=== PATIENT | female | born 1965 | race Caucasian/White ===

== ENCOUNTER 2019-03-31 12:22 | Emergency (ER) | payer MEDICARE, MEDICAID ==
[~2019-03-31] VITALS: Ht 165.1 cm; Wt 74.4 kg
[2019-03-31 13:04] LABS: BACTERIA,URINE NEGATIVE /HPF; BILIRUBIN,URINE NEGATIVE (NEGATIVE); CLARITY,URINE CLEAR; COLOR,URINE YELLOW; GLUCOSE, URINE (UA) NEGATIVE (NEGATIVE); KETONES,URINE NEGATIVE (NEGATIVE); LEUKOCYTE ESTERASE ,URINE NEGATIVE (NEGATIVE); NITRITE,URINE NEGATIVE (NEGATIVE); PH,URINE 6 (5-9); PROTEIN,URINE NEGATIVE (NEGATIVE); RBC,URINE RARE /HPF; UROBILINOGEN,URINE NORMAL (NORMAL); WBC,URINE RARE /HPF
[2019-03-31] MEDS ORDERED: ONDANSETRON 4 MG (ZOFRAN) ORAL DISSOLVE TAB PO STA (13:12)
[2019-03-31] MEDS ORDERED: HYDROmorphone 2 MG/ML VIAL (DILAUDID) IV ONE (13:15)
--- NOTE | 2019-03-31 13:26 | ED Back Pain ---
General Chief Complaint: Back Problems Stated Complaint: RT SIDE HIP PAIN Nursing Triage Note: Arrival per POV, pt slid and fell in mud on sidewalk by her car and landed on her front. Pt then hit sidewalk turned to her R side and twisted L ankle. Pt reports pain in R elbow, low back, and L ankle. Pt in P.T. therapy for bulging disc back and also chronic pain post OP L ankle fx 2016. Nursing Sepsis Screen: No Definite Risk History of Present Illness Date Seen by Provider: March 31, 2019 Time Seen by Provider: 13:05 Timing/Duration: 1 Hour Severity: Moderate Method of Injury: Fall Modifying Factors: Improves With Movement Associated Symptoms: denies symptoms Other Comments This is a 53-year-old female who presents after a mechanical fall forwards with right elbow, right knee, left ankle, and left low back pain. No weakness or numbness or tingling. No antiplatelet agents or anticoagulant medications. She did not hit her head. No headache or neck pain. No chest pain or shortness of breath. Pain is constant, moderate, sore in character, worse with palpation or movement, nonradiating from the areas described above. Allergies and Home Medications Allergies Coded Allergies: adhesive tape (Unverified Adverse Reaction, Unknown, 03/31/19) dicyclomine (Unverified Adverse Reaction, Unknown, 03/31/19) hydrocodone (Unverified Adverse Reaction, Unknown, 03/31/19) ibuprofen (Unverified Adverse Reaction, Unknown, 03/31/19) latex (Unverified Adverse Reaction, Unknown, 03/31/19) menthol (Unverified Adverse Reaction, Unknown, 03/31/19) meperidine (Unverified Adverse Reaction, Unknown, 03/31/19) nortriptyline (Unverified Adverse Reaction, Unknown, 03/31/19) prednisone (Unverified Adverse Reaction, Unknown, 03/31/19) tramadol (Unverified Adverse Reaction, Unknown, 03/31/19) Patient Home Medication List Home Medication List Reviewed: Yes Review of Systems Constitutional: no symptoms reported EENTM: no symptoms reported Respiratory: no symptoms reported Cardiovascular: no symptoms reported Gastrointestinal: no symptoms reported Genitourinary: no symptoms reported Musculoskeletal: see HPI Skin: no symptoms reported Psychiatric/Neurological: No Symptoms Reported Past Kbbukim-Ejjdnv-Picyaq Hx Past Med/Social Hx: Reviewed Nursing Past Med/Soc Hx Patient Social History Alcohol Use: Denies Use Recreational Drug Use: No Smoking Status: Never a Smoker Recent Foreign Travel: No Contact w/Someone Who Travel: No Recent Infectious Disease Expo: No Recent Hopitalizations: No Physical Abuse: No Sexual Abuse: No Mistreated: No Fear: No Seasonal Allergies Seasonal Allergies: No Past Medical History Surgeries: Yes (bx, breast bx, carpal tunnel release, L wrist x 2, eye surgery) Breast, Orthopedic Respiratory: No Cardiac: Yes (undiagnosed cardiac murmur) Hypertension Neurological: Yes Headaches /Migraines Genitourinary: Yes UTI-Chronic Gastrointestinal: Yes (Diaphragmatic hernia) Gastroesophageal Reflux, Esophagitis, Irritable Bowel Musculoskeletal: Yes (bulging disc, chronic left ankle pain, cervical disc "pinched") Chronic Back Pain Endocrine: Yes Diabetes, Non-Insulin dep HEENT: Yes (eye surgery) Cancer: No Psychosocial: Yes Depression Integumentary: No Blood Disorders: No Physical Exam Vital Signs Vital Signs - First Documented 03/31/19 12:25 Temp 98.6 Pulse 83 Resp 22 B/P (MAP) 131/81 (98) Pulse Ox 96 O2 Delivery Room Air Capillary Refill : Less Than 3 Seconds Height, Weight, BMI Height: 5'5.00" Weight: 164lbs. oz. 74.542864uy; BMI Method:Stated General Appearance: No Apparent Distress HEENT: PERRL/EOMI (no palomino sign, no otorrhea, no tenderness of the scalp) Neck: Non Tender, Supple Cardiovascular: Regular Rate, Rhythm, Normal Peripheral Pulses Respiratory: Chest Non Tender (lateral compression of chest refers pain to left mid to lower back), Lungs Clear Gastrointestinal: Non Tender, Soft Back: Other (there is tenderness in the left lumbar musculature, slightly tender over the left lowermost posterior ribs) Extremity: Other (there is some generalized tenderness about the right knee with no ligamentous laxity no effusion. There is also tenderness to palpation over the medial and lateral left malleoli of the ankle. There is faint ecchymosis over the proximal ulna on the right, with mild tenderness to palpation in the soft tissues of the proximal forearm. Small amount of dirt on the hyperthenar eminence of the left hand without tenderness) Neurologic/Psychiatric: Alert, Oriented x3, No Motor/Sensory Deficits, insurance marketing specialist II- XII Norm as Tested; No Abnormal Cerebellar Tests Skin: Warm/Dry Progress/Results/Core Measures Results/Orders Lab Results Laboratory Tests Test 03/31/19 12:51 Range/Units Urine Color YELLOW Urine Clarity CLEAR Urine pH 6 5-9 Urine Specific [place] 1.010 L 1.016-1.022 Urine Protein NEGATIVE NEGATIVE Urine Glucose (UA) NEGATIVE NEGATIVE Urine Ketones NEGATIVE NEGATIVE Urine Nitrite NEGATIVE NEGATIVE Urine Bilirubin NEGATIVE NEGATIVE Urine Urobilinogen NORMAL NORMAL MG/DL Urine Leukocyte Esterase NEGATIVE NEGATIVE Urine RBC (Auto) NEGATIVE NEGATIVE Urine RBC RARE /HPF Urine WBC RARE /HPF Urine Squamous Epithelial Cells 2-5 /HPF Urine Crystals NONE /LPF Urine Bacteria NEGATIVE /HPF Urine Casts NONE /LPF Urine Mucus NEGATIVE /LPF Urine Culture Indicated NO My Orders Orders - SKYE HERNANDEZ DO Ua Culture If Indicated (03/31/19 12:52) Hydromorphone Injection (Dilaudid Inject (03/31/19 13:15) Ondansetron Oral Dissolve Tab (Zofran (03/31/19 13:12) Elbow 2 View Right (03/31/19 13:12) Ankle 2 View Left (03/31/19 13:12) Lumbar Spine 2 Or 3 View (03/31/19 13:12) Knee 2 View Right (03/31/19 13:12) Chest Pa/Lat (2 View) (03/31/19 13:26) Thoracic Spine 2 View Only (03/31/19 13:27) Medications Given in ED Current Medications Medications Dose Ordered Sig/Marlin Route Start Time Stop Time Status Last Admin Dose Admin Hydromorphone HCl 1 mg ONCE ONCE IV 03/31/19 13:15 03/31/19 13:16 DC 03/31/19 13:21 1 MG Vital Signs/I&O 03/31/19 03/31/19 12:25 13:21 Temp 98.6 98.6 Pulse 83 Resp 22 B/P (MAP) 131/81 (98) Pulse Ox 96 O2 Delivery Room Air Blood Pressure Mean: 98 Progress Progress Note #1: Progress Note Primary and secondary survey is only significant for tenderness over the right elbow, right knee, left ankle, and left mid to lower back. We will treat patient with intramuscular hydromorphone for analgesia and we will obtain radiographs of the above areas. She is nontoxic in appearance, neurovascularly intact. We will continue to monitor. Progress Note #2: Progress Note Pt feels well and ready to go home. Xrays neg. Ambulating steadily without assistance. F/u pcp. Departure Impression Primary Impression: Back strain Additional Impressions: Fall Elbow contusion Ankle sprain Knee contusion Disposition: HOME, SELF-CARE Condition: Stable Departure-Patient Inst. Referrals: MARITZA HUFF MD (PCP/Family) Primary Care Physician Patient Instructions: Lumbar Muscle Strain (DC), Ankle Sprain (DC) SKYE HERNANDEZ DO March 31, 2019 13:26
--- NOTE | 2019-03-31 14:58 | Diagnostic Imaging Report ---
INDICATION: Chest pain after fall. COMPARISON: None. DISCUSSION: Two views of the chest were obtained. Mild cardiomegaly. No focal consolidation, pleural fluid, or pneumothorax. No osseous abnormality. IMPRESSION: 1. Mild cardiomegaly. No acute abnormality otherwise. Dictated by: Dictated on workstation # [id number]
--- NOTE | 2019-03-31 14:59 | Diagnostic Imaging Report ---
INDICATION: Right elbow pain after fall. COMPARISON: None available. TECHNIQUE: AP and lateral views of the right elbow were obtained. FINDINGS: No elbow joint effusion. No discrete fracture. Joint spaces are preserved. No radiopaque foreign body. IMPRESSION: No acute osseous abnormality of the right elbow. Dictated by: Dictated on workstation # [id number]
--- NOTE | 2019-03-31 14:59 | Diagnostic Imaging Report ---
INDICATION: Right knee pain after fall. COMPARISON: None. DISCUSSION: Two views of the right knee were obtained. No acute fracture, dislocation, or other osseous abnormality identified. No significant degenerative disease. Alignment is anatomic. Soft tissues are unremarkable. No effusion. IMPRESSION: 1. Negative right knee. Dictated by: Dictated on workstation # [id number]
--- NOTE | 2019-03-31 15:00 | Diagnostic Imaging Report ---
INDICATION: Mid back pain after fall. COMPARISON: None. DISCUSSION: Three views of the thoracic spine were obtained. No fracture or subluxation. Intervertebral disc spaces are maintained. Alignment is anatomic. Soft tissues are unremarkable. IMPRESSION: 1. Negative thoracic spine. Dictated by: Dictated on workstation # [id number]
--- NOTE | 2019-03-31 15:01 | Diagnostic Imaging Report ---
INDICATION: Left ankle pain. COMPARISON: None available. TECHNIQUE: Two views of the left ankle were obtained. FINDINGS: No acute fracture or traumatic malalignment. There is a hyperdense prosthesis of the distal aspect of the calcaneus. No osteochondral lesion of talar dome. Partially imaged arthrodesis changes utilizing dorsal plate and screws in the midfoot. IMPRESSION: 1. No acute osseous abnormality in the left ankle. 2. Prosthesis of the distal calcaneus. Correlation with surgical history. Dictated by: Dictated on workstation # [id number]
--- NOTE | 2019-03-31 15:03 | Diagnostic Imaging Report ---
INDICATION: Back pain after fall. COMPARISON: None available. TECHNIQUE: 3 views of lumbar spine were obtained. FINDINGS: Normal lordosis lumbar spine. No compression or burst fracture within the lumbar vertebrae. No features of fracture the posterior elements. SI joints are normal alignment. Intervertebral disc space heights are preserved. IMPRESSION: No acute fracture in the lumbar spine. Dictated by: Dictated on workstation # [id number]
--- NOTE | 2019-03-31 15:15 | NUR ---
Notified that all films are read.
[2019-03-31 15:30] VITALS: BP 117/69
--- NOTE | 2019-03-31 15:30 | NUR ---
Pt discharged to home after review of home instructions verbalized. had to do extensive discharge instructions with patient for the many questions about her current underlying problems and associated discomfort now with return to work. Work note prepared to release to return to work on April 03 with no restrictions. Pt advised to keep all f/u appts existing. Pt will go to P.T. Tuesday but will advise of the ER visit. Pt then states, "Well are you going to dress me and put me in the WC as I can not do anything?" Staff note pt only fastened bra and staff had to do remaining assistance of dressing.
[2019-03-31] MEDS ORDERED: LUBI8CAP (16:57)
[2019-03-31] MEDS ORDERED: GABA-486 (16:57)
[2019-03-31] MEDS ORDERED: SITA100T12 (16:57)
[2019-03-31] MEDS ORDERED: ESCI5TAB12 (16:57)
[2019-03-31] MEDS ORDERED: OMEP20CA12 (16:57)
[2019-03-31] MEDS ORDERED: FEXO-46 (16:57)
[2019-03-31] MEDS ORDERED: LOSA50TA63 (16:57)
== END 2019-03-31 15:30 | disposition home or self-care (01) ==
LOC: EDUNIT# 12:22 → ER FS 12:24
DX: S39.012A Strain of muscle, fascia and tendon of lower back, initial encounter (principal); S93.401A Sprain of unspecified ligament of right ankle, initial encounter; S50.01XA Contusion of right elbow, initial encounter; S80.01XA Contusion of right knee, initial encounter; I10 Essential (primary) hypertension; G43.909 Migraine, unspecified, not intractable, without status migrainosus; K21.0 Gastro-esophageal reflux disease with esophagitis; K58.9 Irritable bowel syndrome, unspecified; E11.9 Type 2 diabetes mellitus without complications; F32.9 Major depressive disorder, single episode, unspecified; Z87.440 Personal history of urinary (tract) infections; Z98.890 Other specified postprocedural states; Z91.048 Other nonmedicinal substance allergy status; Z88.6 Allergy status to analgesic agent; Z91.040 Latex allergy status; Z88.8 Allergy status to other drugs, medicaments and biological substances; Z88.5 Allergy status to narcotic agent; W18.30XA Fall on same level, unspecified, initial encounter
CPT/HCPCS: 71046; 72070; 72100; 73070; 73560; 73600; 81000; 96372

== ENCOUNTER → 2019-04-18 | Outpatient (CLI) | payer MEDICARE, MEDICAID ==
[~2019-04-18] MED LIST: ESCI5TAB12; FEXO-46; GABA-486; LOSA50TA63; LUBI8CAP; OMEP20CA12; SITA100T12
[2019-04-18 10:21] LABS: CARBON DIOXIDE 26 MMOL/L (21-32); CHLORIDE 101 MMOL/L (98-107); SODIUM 141 MMOL/L (135-145)
[2019-04-18 10:22] LABS: ALANINE AMINOTRANSFERASE 23 U/L (0-55); ALBUMIN 4.4 GM/DL (3.2-4.5); ALKALINE PHOSPHATASE 73 U/L (40-136); BILIRUBIN,TOTAL 0.4 MG/DL (0.1-1.0); BUN/CREATININE RATIO 21; CALCIUM 9.4 MG/DL (8.5-10.1); CREATININE SERUM 0.77 MG/DL (0.60-1.30); GFR ESTIMATED > 60; GLUCOSE 154 MG/DL (70-105); TOTAL PROTEIN 7.6 GM/DL (6.4-8.2)
[2019-04-18 11:59] LABS: CHOLESTEROL 202 MG/DL (< 200); HDL CHOLESTEROL 49 MG/DL (40-60); TRIGLYCERIDES 111 MG/DL (<150); VLDL CHOLESTEROL 22 MG/DL (5-40)
== END ==
LOC: LAB FS 07:26
PROVIDERS: ATTEND Family Medicine
DX: E11.9 Type 2 diabetes mellitus without complications (principal); I10 Essential (primary) hypertension
CPT/HCPCS: 36415; 80053; 80061; 82043; 83036

== ENCOUNTER 2019-12-04 13:02 | Emergency (ER) | payer OTHER, MEDICAID ==
[~2019-12-04] VITALS: Ht 165 cm; Wt 118.0 kg
[~2019-12-04 13:02] MED LIST changes: +OMEP-280; -OMEP20CA12
--- NOTE | 2019-12-04 13:38 | ED Chest Pain ---
General Chief Complaint: Chest Pain Stated Complaint: CHEST PAIN Nursing Triage Note: Started having sternal/epigastric chest pain yesterday afternoon. Pain was intermittent and eventually stopped. The pain started again this morning approximately 1 hour prior to arrival. Denies any radiation of the pain and denies shortness of breath. Has hx or htn, hyperlipidemia, and diabetes. Nursing Sepsis Screen: No Definite Risk Source: patient Exam Limitations: no limitations (ANA MEDINA DO) History of Present Illness Date Seen by Provider: Dec 04, 2019 Time Seen by Provider: 13:20 Initial Comments The patient is a very pleasant 54-year-old female who presents for left-sided chest pain over the last 2 days. She states the pain has been coming and going. She denies a similar discomfort previously. She is diabetic and has history of hypertension and hyperlipidemia but denies any cardiac history. She has not ta ángel any aspirin today. She is alert and oriented 4, calm, and appears to be in no distress. She denies fevers or chills, cough, shortness of breath, palpitations, dizziness, or syncope. Timing/Duration: 1-2 days Severity/Quality: moderate Location: other (left chest) Radiation: no radiation Activities at Onset: none Prior CP/Workup: no prior chest pain ASA po PV INSTALLER TECH: No NTG SL PV INSTALLER TECH: No Associated Symptoms: denies symptoms (ANA MEDINA DO) Allergies and Home Medications Allergies Coded Allergies: adhesive tape (Unverified Adverse Reaction, Unknown, 03/31/19) dicyclomine (Unverified Adverse Reaction, Unknown, 03/31/19) hydrocodone (Unverified Adverse Reaction, Unknown, 03/31/19) ibuprofen (Unverified Adverse Reaction, Unknown, 03/31/19) latex (Unverified Adverse Reaction, Unknown, 03/31/19) menthol (Unverified Adverse Reaction, Unknown, 03/31/19) meperidine (Unverified Adverse Reaction, Unknown, 03/31/19) nortriptyline (Unverified Adverse Reaction, Unknown, 03/31/19) prednisone (Unverified Adverse Reaction, Unknown, 03/31/19) tramadol (Unverified Adverse Reaction, Unknown, 03/31/19) Patient Home Medication List Home Medication List Reviewed: Yes (ANA MEDINA DO) Home Medication List Reviewed: Yes (ALEC TAI MD) Review of Systems Review of Systems Constitutional: no symptoms reported EENTM: No Symptoms Reported Respiratory: No Symptoms Reported Cardiovascular: Chest Pain Gastrointestinal: No Symptoms Reported Genitourinary: No Symptoms Reported Musculoskeletal: no symptoms reported Skin: no symptoms reported Psychiatric/Neurological: No Symptoms Reported Endocrine: No Symptoms Reported Hematologic/Lymphatic: No Symptoms Reported (ANA MEDINA DO) All Other Systems Reviewed Negative Unless Noted: Yes (ANA MEDINA DO) Past Hszuype-Gexkpy-Kvxzhf Hx Patient Social History Alcohol Use: Denies Use Recreational Drug Use: No Smoking Status: Never a Smoker 2nd Hand Smoke Exposure: No Recent Foreign Travel: No Contact w/Someone Who Travel: No Recent Infectious Disease Expo: No Recent Hopitalizations: No Physical Abuse: No Sexual Abuse: No Mistreated: No Fear: No (ANA MEDINA DO) Seasonal Allergies Seasonal Allergies: No (ANA MEDINA DO) Past Medical History Surgeries: Yes (bx, breast bx, carpal tunnel release, L wrist x 2, eye surgery) Breast, Orthopedic Respiratory: No Cardiac: Yes (undiagnosed cardiac murmur) Hypertension Neurological: Yes Headaches /Migraines Genitourinary: Yes UTI-Chronic Gastrointestinal: Yes (Diaphragmatic hernia) Gastroesophageal Reflux, Esophagitis, Irritable Bowel Musculoskeletal: Yes (bulging disc, chronic left ankle pain, cervical disc "pin ched") Chronic Back Pain Endocrine: Yes Diabetes, Non-Insulin dep HEENT: Yes (eye surgery) Cancer: No Psychosocial: Yes Depression Integumentary: No Blood Disorders: No (ANA MEDINA DO) Physical Exam Vital Signs Vital Signs - First Documented 12/04/19 13:24 Temp 36.1 Pulse 83 Resp 15 B/P (MAP) 138/78 (98) Pulse Ox 98 (ALEC TAI MD) Vital Signs Capillary Refill : Less Than 3 Seconds (ANA MEDINA DO) Height, Weight, BMI Height: 5'5.00" Weight: 164lbs. oz. 74.984019wd; 43.00 BMI Method:Stated General Appearance: No Apparent Distress, WD/WN HEENT: PERRL/EOMI, TMs Normal Neck: Full Range of Motion, Non Tender, Supple Respiratory: Chest Non Tender, Lungs Clear, Normal Breath Sounds, No Accessory Muscle Use, No Respiratory Distress Cardiovascular: Regular Rate, Rhythm, No Edema, No JVD Gastrointestinal: Normal Bowel Sounds, Non Tender, Soft Extremity: Normal Capillary Refill, Non Tender, No Calf Tenderness Neurologic/Psychiatric: Alert, Oriented x3, No Motor/Sensory Deficits, Normal Mood/Affect Skin: Normal Color, Warm/Dry (ANA MEDINA DO) Progress/Results/Core Measures Results/Orders Lab Results Laboratory Tests Test 12/04/19 13:18 12/04/19 16:00 Range/Units White Blood Count 6.7 4.3-11.0 10^3/uL Red Blood Count 4.60 4.35-5.85 10^6/uL Hemoglobin 12.9 11.5-16.0 G/DL Hematocrit 40 35-52 % Mean Corpuscular Volume 87 80-99 FL Mean Corpuscular Hemoglobin 28 25-34 PG Mean Corpuscular Hemoglobin Concent 32 32-36 G/DL Red Cell Distribution Width 14.8 H 10.0-14.5 % Platelet Count 268 130-400 10^3/uL Mean Platelet Volume 9.7 7.4-10.4 FL Neutrophils (%) (Auto) 68 42-75 % Lymphocytes (%) (Auto) 23 12-44 % Monocytes (%) (Auto) 6 0-12 % Eosinophils (%) (Auto) 2 0-10 % Basophils (%) (Auto) 1 0-10 % Neutrophils # (Auto) 4.5 1.8-7.8 X 10^3 Lymphocytes # (Auto) 1.6 1.0-4.0 X 10^3 Monocytes # (Auto) 0.4 0.0-1.0 X 10^3 Eosinophils # (Auto) 0.2 0.0-0.3 10^3/uL Basophils # (Auto) 0.0 0.0-0.1 10^3/uL D-Dimer 0.37 0.00-0.49 UG/ML Sodium Level 139 135-145 MMOL/L Potassium Level 3.8 3.6-5.0 MMOL/L Chloride Level 102 98-107 MMOL/L Carbon Dioxide Level 23 21-32 MMOL/L Anion Gap 14 5-14 MMOL/L Blood Urea Nitrogen 14 7-18 MG/DL Creatinine 0.99 0.60-1.30 MG/DL Estimat Glomerular Filtration Rate 58 BUN/Creatinine Ratio 14 Glucose Level 137 H 70-105 MG/DL Calcium Level 9.4 8.5-10.1 MG/DL Corrected Calcium 9.1 8.5-10.1 MG/DL Total Bilirubin 0.3 0.1-1.0 MG/DL Aspartate Amino Transf (AST/SGOT) 13 5-34 U/L Alanine Aminotransferase (ALT/SGPT) 20 0-55 U/L Alkaline Phosphatase 68 40-136 U/L Troponin I < 0.30 < 0.30 <0.30 NG/ML Pro-B-Type Natriuretic Peptide 76.9 H <75.0 PG/ML Total Protein 7.5 6.4-8.2 GM/DL Albumin 4.4 3.2-4.5 GM/DL (ALEC TAI MD) Medications Given in ED Current Medications Medications Dose Ordered Sig/Marlin Route Start Time Stop Time Status Last Admin Dose Admin Al Hydrox/Mg Hydrox/Simethicone 30 ml ONCE ONCE PO 12/04/19 16:45 12/04/19 16:46 DC 12/04/19 16:46 30 ML Aspirin 324 mg ONCE ONCE PO 12/04/19 13:45 12/04/19 13:46 DC 12/04/19 13:38 324 MG Lidocaine HCl 15 ml ONCE ONCE PO 12/04/19 16:45 12/04/19 16:46 DC 12/04/19 16:46 15 ML Nitroglycerin 0.4 mg NEEDED PRN SL 12/04/19 16:15 12/04/19 16:20 0.4 MG (ALEC TAI MD) Vital Signs/I&O 12/04/19 13:24 Temp 36.1 Pulse 83 Resp 15 B/P (MAP) 138/78 (98) Pulse Ox 98 (ALEC TAI MD) Blood Pressure Mean: 98 Progress Progress Note : Progress Note @1730 - patient and family updated on lab and imaging results. Second troponin is negative. D-dimer is pending. The patient states she is feeling much better after the GI cocktail. She also mentions that her pain is worse with movement which is reassuring given the negative workup. Strongly advised the patient to follow up with her PCP in the next 1-2 days and/or cardiology. Strongly encouraged the patient to have a stress test performed within the next 48 hours which can be facilitated by her PCP. As the patient to return to the emergency Department immediately for new or worsening symptoms. She expresses verbal understanding and agreement with the plan and is stable for discharge. @1800 - Awaiting d-dimer. Patient care transferred to Dr. Tai at this time. (ANA MEDINA DO) Progress Note : Progress Note D dimer was negative so pt discharged as planned by Dr. Medina and discussed with pt. Have her call her doctor to arrange follow up and stress testing or cardiology consult. Return or seek medical care for worsening symptoms or more problems (ALEC TAI MD) Initial ECG Impression Date: Dec 04, 2019 Initial ECG Impression Time: 13:12 Comment Normal sinus rhythm, rate of 81, normal axis, no acute ischemic findings noted, no STEMI, reviewed and interpreted by myself (ANA MEDINA DO) Departure Impression Primary Impression: Chest wall discomfort Disposition: 01 HOME, SELF-CARE Condition: Stable Departure-Patient Inst. Decision time for Depature: 18:13 (ALEC TAI MD) Referrals: MARITZA HUFF MD (PCP/Family) Primary Care Physician Patient Instructions: Chest Pain That Is Not Caused by the Heart (DC), Costochondritis (DC), Chest Pain (DC) Add. Discharge Instructions: Follow up with your regular provider and be seen this week. They may want to do a stress test or have a cardiology consult for your symptoms Return or seek medical care for worsening symptoms All discharge instructions reviewed with patient and/or family. Voiced unders tanding. Work/School Note: Work Release Form Date Seen in the Emergency Department: Dec 04, 2019 Return to Work: Dec 05, 2019 Other Restrictions Listed Below: Limit lifting to low weights as tolerated ANA MEDINA DO Dec 04, 2019 13:38 ALEC TAI MD Dec 04, 2019 18:15
[2019-12-04] MEDS ORDERED: ASPIRIN 81 MG CHEW (CHILDREN'S ASA) PO ONE (13:45)
[2019-12-04 13:53] LABS: BASOPHILS % (AUTO) 1 % (0-10); EOSINOPHILS % (AUTO) 2 % (0-10); HEMATOCRIT 40 % (35-52); HEMOGLOBIN 12.9 G/DL (11.5-16.0); LYMPHOCYTES % (AUTO) 23 % (12-44); MEAN CORPUSCULAR HEMOGLOBIN 28 PG (25-34); MEAN CORPUSCULAR HGB CONC 32 G/DL (32-36); MEAN CORPUSCULAR VOLUME 87 FL (80-99); MEAN PLATELET VOLUME 9.7 FL (7.4-10.4); MONOCYTES % (AUTO) 6 % (0-12); NEUTROPHILS # (AUTO) 4.5 X 10^3 (1.8-7.8); NEUTROPHILS % (AUTO) 68 % (42-75); PLATELET COUNT 268 10^3/uL (130-400); RED CELL DISTRIBUTION WIDTH 14.8 % (10.0-14.5); WHITE BLOOD COUNT 6.7 10^3/uL (4.3-11.0)
[2019-12-04 13:54] LABS: EOSINOPHILS # (AUTO) 0.2 10^3/uL (0.0-0.3); LYMPHOCYTES # (AUTO) 1.6 X 10^3 (1.0-4.0); MONOCYTES # (AUTO) 0.4 X 10^3 (0.0-1.0)
[2019-12-04 14:17] LABS: ALBUMIN 4.4 GM/DL (3.2-4.5); BILIRUBIN,TOTAL 0.3 MG/DL (0.1-1.0); CALCIUM 9.4 MG/DL (8.5-10.1); CREATININE SERUM 0.99 MG/DL (0.60-1.30); POTASSIUM 3.8 MMOL/L (3.6-5.0); TOTAL PROTEIN 7.5 GM/DL (6.4-8.2)
--- NOTE | 2019-12-04 14:47 | Diagnostic Imaging Report ---
INDICATION: Chest pain. TIME OF EXAM: 1:53 p.m. COMPARISON: Comparison is made with prior chest from 03/31/2019. FINDINGS: Nodular density in the lateral aspect of the left lung base is stable. No infiltrates are seen. There is no effusion or pneumothorax. The heart size is stable. IMPRESSION: No acute cardiopulmonary process is detected. Dictated by: Dictated on workstation # [id number]
[2019-12-04] MEDS ORDERED: NITROGLYCERIN 0.4 MG SL TABS BTL 25'S SL PRN (16:15)
[2019-12-04] MEDS ORDERED: ANTACID SUSP 30 ML UDC (MYLANTA) PO ONE (16:45)
[2019-12-04] MEDS ORDERED: LIDOCAINE 2% VISCOUS 15 ML UDC PO ONE (16:45)
[2019-12-04 18:49] VITALS: BP 128/80
== END 2019-12-04 18:30 | disposition home or self-care (01) ==
LOC: EDUNIT# 13:02 → ER FS 13:03
DX: R07.89 Other chest pain (principal); I10 Essential (primary) hypertension; E78.5 Hyperlipidemia, unspecified; E11.9 Type 2 diabetes mellitus without complications; G43.909 Migraine, unspecified, not intractable, without status migrainosus; K21.0 Gastro-esophageal reflux disease with esophagitis; K58.9 Irritable bowel syndrome, unspecified; F32.9 Major depressive disorder, single episode, unspecified; Z88.8 Allergy status to other drugs, medicaments and biological substances; Z88.5 Allergy status to narcotic agent; Z88.6 Allergy status to analgesic agent; Z91.040 Latex allergy status
CPT/HCPCS: 36415; 71045; 80053; 83880; 84484; 85025; 85379; 93005; 93041

== ENCOUNTER → 2020-02-16 | Outpatient (CLI) | payer MEDICARE, MEDICAID ==
[~2020-02-16] MED LIST changes: -OMEP-280; +OMEP20CA18
== END ==
LOC: LAB FS 09:20
PROVIDERS: ATTEND Family Medicine
DX: E11.65 Type 2 diabetes mellitus with hyperglycemia (principal)
CPT/HCPCS: 36415; 83036

== ENCOUNTER → 2020-03-29 | Outpatient (CLI) | payer MEDICARE, MEDICAID ==
[2020-03-29 08:35] LABS: BASOPHILS % (AUTO) 1 % (0-10); EOSINOPHILS % (AUTO) 2 % (0-10); HEMATOCRIT 41 % (35-52); HEMOGLOBIN 13.6 G/DL (11.5-16.0); LYMPHOCYTES # (AUTO) 1.2 X 10^3 (1.0-4.0); LYMPHOCYTES % (AUTO) 20 % (12-44); MEAN CORPUSCULAR HEMOGLOBIN 28 PG (25-34); MEAN CORPUSCULAR HGB CONC 33 G/DL (32-36); MEAN CORPUSCULAR VOLUME 86 FL (80-99); MEAN PLATELET VOLUME 9.2 FL (7.4-10.4); MONOCYTES % (AUTO) 5 % (0-12); NEUTROPHILS # (AUTO) 4.3 X 10^3 (1.8-7.8); NEUTROPHILS % (AUTO) 71 % (42-75); PLATELET COUNT 266 10^3/uL (130-400); RED CELL DISTRIBUTION WIDTH 14.6 % (10.0-14.5); WHITE BLOOD COUNT 5.9 10^3/uL (4.3-11.0)
[2020-03-29 08:36] LABS: BASOPHILS # (AUTO) 0.1 10^3/uL (0.0-0.1); EOSINOPHILS # (AUTO) 0.1 10^3/uL (0.0-0.3); MONOCYTES # (AUTO) 0.3 X 10^3 (0.0-1.0)
[2020-03-29 09:00] LABS: ALANINE AMINOTRANSFERASE 27 U/L (0-55); ALBUMIN 4.1 GM/DL (3.2-4.5); ALKALINE PHOSPHATASE 69 U/L (40-136); BILIRUBIN,TOTAL 0.3 MG/DL (0.1-1.0); BUN/CREATININE RATIO 23; CALCIUM 9.4 MG/DL (8.5-10.1); CARBON DIOXIDE 23 MMOL/L (21-32); CHLORIDE 102 MMOL/L (98-107); CREATININE SERUM 0.69 MG/DL (0.60-1.30); GFR ESTIMATED > 60; GLUCOSE 177 MG/DL (70-105); POTASSIUM 4.3 MMOL/L (3.6-5.0); SODIUM 138 MMOL/L (135-145); TOTAL PROTEIN 7.2 GM/DL (6.4-8.2)
[2020-03-29 11:34] LABS: BILIRUBIN,URINE NEGATIVE (NEGATIVE); CLARITY,URINE CLEAR; COLOR,URINE YELLOW; GLUCOSE, URINE (UA) 3+ (NEGATIVE); KETONES,URINE NEGATIVE (NEGATIVE); LEUKOCYTE ESTERASE ,URINE NEGATIVE (NEGATIVE); NITRITE,URINE NEGATIVE (NEGATIVE); PH,URINE 5.5 (5-9); PROTEIN,URINE NEGATIVE (NEGATIVE)
[2020-03-29 14:37] LABS: CHOLESTEROL 203 MG/DL (< 200); HDL CHOLESTEROL 52 MG/DL (40-60); TRIGLYCERIDES 120 MG/DL (<150); VLDL CHOLESTEROL 24 MG/DL (5-40)
== END ==
LOC: LAB FS 07:09
PROVIDERS: ATTEND Nurse Practitioner Family
DX: E11.65 Type 2 diabetes mellitus with hyperglycemia (principal); I10 Essential (primary) hypertension
CPT/HCPCS: 36415; 80053; 80061; 81000; 82043; 84443; 85025

== ENCOUNTER → 2021-01-17 | Outpatient (CLI) | payer MEDICARE, MEDICAID ==
[~2021-01-17] MED LIST changes: -ESCI5TAB12; +ESCI5TAB16
== END ==
LOC: LAB FS 08:06
PROVIDERS: ATTEND Family Medicine
DX: E11.65 Type 2 diabetes mellitus with hyperglycemia (principal)
CPT/HCPCS: 36415; 83036

== ENCOUNTER → 2021-01-21 | Outpatient (CLI) | payer MEDICARE, MEDICAID ==
[2021-01-21 13:57] LABS: CHLORIDE 103 MMOL/L (98-107); SODIUM 138 MMOL/L (135-145)
[2021-01-21 13:58] LABS: BUN/CREATININE RATIO 27; CALCIUM 9.7 MG/DL (8.5-10.1); CARBON DIOXIDE 24 MMOL/L (21-32); GFR ESTIMATED > 60; GLUCOSE 160 MG/DL (70-105)
== END ==
LOC: LAB FS 12:57
PROVIDERS: ATTEND Family Medicine
DX: E11.65 Type 2 diabetes mellitus with hyperglycemia (principal)
CPT/HCPCS: 36415; 80048

== ENCOUNTER → 2021-03-26 | Outpatient (CLI) | payer MEDICARE, MEDICAID | LOC: LAB FS 10:50 | PROVIDERS: ATTEND Orthopaedic Surgery | DX: Z01.812 Encounter for preprocedural laboratory examination (principal); Z20.822 Contact with and (suspected) exposure to COVID-19 | CPT/HCPCS: 87635 ==

== ENCOUNTER → 2021-06-09 | Outpatient (CLI) | payer MEDICARE, MEDICAID ==
[2021-06-09 10:10] LABS: CHLORIDE 102 MMOL/L (98-107); SODIUM 138 MMOL/L (135-145)
[2021-06-09 10:38] LABS: BUN/CREATININE RATIO 22; CARBON DIOXIDE 23 MMOL/L (21-32); CREATININE SERUM 0.63 MG/DL (0.60-1.30); GFR ESTIMATED > 60; GLUCOSE 110 MG/DL (70-105)
[2021-06-09 10:39] LABS: ALANINE AMINOTRANSFERASE 24 U/L (0-55); ALBUMIN 4.5 GM/DL (3.2-4.5); ALKALINE PHOSPHATASE 67 U/L (40-136); AMYLASE 35 U/L (25-125); BILIRUBIN,TOTAL 0.3 MG/DL (0.1-1.0); CALCIUM 9.9 MG/DL (8.5-10.1); LIPASE 36 U/L (8-78); TOTAL PROTEIN 7.5 GM/DL (6.4-8.2)
== END ==
LOC: LAB FS 09:22
PROVIDERS: ATTEND Family Medicine
DX: R11.0 Nausea (principal); R19.7 Diarrhea, unspecified
CPT/HCPCS: 36415; 80053; 82150; 83690

== ENCOUNTER → 2021-07-06 | Outpatient (CLI) | payer MEDICARE, MEDICAID ==
[2021-07-06 19:05] LABS: ALBUMIN 4.4 GM/DL (3.2-4.5); BILIRUBIN,TOTAL 0.3 MG/DL (0.1-1.0); CREATININE SERUM 0.81 MG/DL (0.60-1.30); TOTAL PROTEIN 7.2 GM/DL (6.4-8.2)
== END ==
LOC: LAB FS 14:27
PROVIDERS: ATTEND Family Medicine
DX: Z01.89 Encounter for other specified special examinations (principal)
CPT/HCPCS: 36415; 80053; 82150; 83690

== ENCOUNTER 2021-12-22 14:05 | Emergency (ER) | payer MEDICARE, MEDICAID ==
[~2021-12-22] VITALS: Ht 165 cm; Wt 119.0 kg
[2021-12-22 14:44] LABS: BASOPHILS % (AUTO) 1 % (0-10); EOSINOPHILS # (AUTO) 0.2 10^3/uL (0.0-0.3); EOSINOPHILS % (AUTO) 2 % (0-10); HEMATOCRIT 42 % (35-52); HEMOGLOBIN 13.5 g/dL (11.5-16.0); LYMPHOCYTES # (AUTO) 1.6 10^3/uL (1.0-4.0); LYMPHOCYTES % (AUTO) 22 % (12-44); MEAN CORPUSCULAR HEMOGLOBIN 28 pg (25-34); MEAN CORPUSCULAR HGB CONC 32 g/dL (32-36); MEAN CORPUSCULAR VOLUME 88 fL (80-99); MEAN PLATELET VOLUME 9.4 fL (9.0-12.2); MONOCYTES # (AUTO) 0.4 10^3/uL (0.0-1.0); MONOCYTES % (AUTO) 6 % (0-12); NEUTROPHILS # (AUTO) 5.3 10^3/uL (1.8-7.8); NEUTROPHILS % (AUTO) 70 % (42-75); PLATELET COUNT 255 10^3/uL (130-400); WHITE BLOOD COUNT 7.6 10^3/uL (4.3-11.0)
[2021-12-22 14:54] LABS: BILIRUBIN,URINE NEGATIVE (NEGATIVE); CLARITY,URINE CLEAR; COLOR,URINE YELLOW; GLUCOSE, URINE (UA) 3+ (NEGATIVE); KETONES,URINE NEGATIVE (NEGATIVE); LEUKOCYTE ESTERASE ,URINE NEGATIVE (NEGATIVE); NITRITE,URINE NEGATIVE (NEGATIVE); PROTEIN,URINE NEGATIVE (NEGATIVE)
[2021-12-22 14:59] LABS: BACTERIA,URINE NEGATIVE /HPF; SQUAMOUS EPITHELIAL CELL,UR 0-2 /HPF; WBC,URINE 0-2 /HPF
[2021-12-22 15:07] LABS: BILIRUBIN,TOTAL 0.3 MG/DL (0.1-1.0); CALCIUM 9.7 MG/DL (8.5-10.1); CREATININE SERUM 0.65 MG/DL (0.60-1.30); POTASSIUM 3.6 MMOL/L (3.6-5.0)
[2021-12-22 15:08] LABS: ALBUMIN 4.3 GM/DL (3.2-4.5); TOTAL PROTEIN 7.2 GM/DL (6.4-8.2)
[2021-12-22] MEDS ORDERED: IOHEXOL 350 MG/ML 150 ML (OMNIPAQUE 350) VIAL IV ONE (15:45)
[2021-12-22] MEDS ORDERED: HOLD METFORMIN - RECEIVED CONTRAST 20 ML VIAL IV SCH (15:45)
[2021-12-22] MEDS ORDERED: NS 100 ML (IVPB) BAG IV ONE (15:45)
--- NOTE | 2021-12-22 16:05 | Diagnostic Imaging Report ---
PROCEDURE: CT abdomen and pelvis with contrast. TECHNIQUE: Multiple contiguous axial images were obtained through the abdomen and pelvis after administration of intravenous contrast. Auto Exposure Controls were utilized during the CT exam to meet ALARA standards for radiation dose reduction. All CT scans use one or more of the following dose optimizing techniques: automated exposure control, MA and/or KvP adjustment based on patient size and exam type or iterative reconstruction. INDICATION: Left flank pain. FINDINGS: Lung bases are clear. The liver demonstrates diffuse low density consistent with hepatic steatosis. Gallbladder is unremarkable. There is no biliary ductal dilatation. There is a moderate-sized hiatal hernia. Pancreas and spleen are unremarkable. No adrenal mass is detected. Kidneys are unremarkable. There is no hydronephrosis. Aorta is nonaneurysmal. The small and large bowel loops are nonobstructed. No inflammatory changes are seen. There is a fat-containing umbilical hernia. No free fluid or fluid collection is seen. The bladder and uterus are unremarkable. Bony structures are nonacute. IMPRESSION: 1. Hepatic steatosis. 2. Moderate-sized hiatal hernia. 3. Fat-containing umbilical hernia. 4. No acute feature detected. Dictated by: Dictated on workstation # [id number]
--- NOTE | 2021-12-22 16:24 | ED Abdominal Pain ---
General Chief Complaint: Abdominal/GI Problems Stated Complaint: ABD PAIN Nursing Triage Note: PT REPORTS SHE HAS GALLSTONES AND WAS SUPPOSED TO HAVE SURGERY LAST WEEK BUT IT GOT PUT OFF DUE TO COVID. PT ALSO REPORTS "I HAVE PIN WORMS IN THE FRONT AND THE BACK" Source of Information: Patient History of Present Illness Date Seen by Provider: Dec 22, 2021 Time Seen by Provider: 14:00 Initial Comments Patient is a 48-year-old female with history of irritable bowel syndrome, chronic biliary colic scheduled to get her gallbladder removed in 6 weeks who presents with diffuse abdominal pain with some localization to the left lower quadrant. Patient states she has had abdominal pain in this region greater than a month. Pain is described as dull deep in worse with movement. She has has not had nausea vomiting fevers chills, urinary frequency urgency dysuria or hematuria. Patient scheduled to see her PCP in 2 days but her appointment was canceled and she was instructed to come to the emergency department instead. Patient also records pinworms which she is treated with [id number]-vucratf med ications. Timing/Duration: Intermittent, Other (1 month) Severity/Quality: Dull Location: Other Radiation: Other Activities at Onset: Other Modifying Factors: Improves With Other Associated Symptoms: Other Allergies and Home Medications Allergies Coded Allergies: adhesive tape (Unverified Adverse Reaction, Unknown, 03/31/19) dicyclomine (Unverified Adverse Reaction, Unknown, 03/31/19) hydrocodone (Unverified Adverse Reaction, Unknown, 03/31/19) ibuprofen (Unverified Adverse Reaction, Unknown, 03/31/19) latex (Unverified Adverse Reaction, Unknown, 03/31/19) menthol (Unverified Adverse Reaction, Unknown, 03/31/19) meperidine (Unverified Adverse Reaction, Unknown, 03/31/19) nortriptyline (Unverified Adverse Reaction, Unknown, 03/31/19) prednisone (Unverified Adverse Reaction, Unknown, 03/31/19) tramadol (Unverified Adverse Reaction, Unknown, 03/31/19) Patient Home Medication List Home Medication List Reviewed: Yes Escitalopram Oxalate (Escitalopram Oxalate) 5 Mg Tablet, (Reported) Entered as Reported by: ELLIE GAVIRIA on 03/31/19 6515 Fexofenadine HCl (Fexofenadine HCl) 180 Mg Tablet, (Reported) Entered as Reported by: ELLIE GAVIRIA on 03/31/191656 Gabapentin (Gabapentin) 100 Mg Capsule, (Reported) Entered as Reported by: ELLIE GAVIRIA on 03/31/191656 Losartan Potassium (Losartan Potassium) 50 Mg Tablet, (Reported) Entered as Reported by: ELLIE GAVIRIA on 03/31/191656 Lubiprostone (Amitiza) 8 Mcg Capsule, (Reported) Entered as Reported by: ELLIE GAVIRIA on 03/31/191656 Omeprazole (Omeprazole) 20 Mg Capsule., (Reported) Entered as Reported by: ELLIE GAVIRIA on 03/31/191656 Sitagliptin Phosphate (Januvia) 100 Mg Tablet, (Reported) Entered as Reported by: ELLIE GAVIRIA on 03/31/191656 Review of Systems Review of Systems Constitutional: see HPI EENTM: See HPI Respiratory: See HPI Cardiovascular: See HPI Gastrointestinal: See HPI Genitourinary: See HPI Musculoskeletal: see HPI Skin: see HPI Psychiatric/Neurological: See HPI Endocrine: See HPI Hematologic/Lymphatic: See HPI All Other Systems Reviewed Negative Unless Noted: Yes Past Cxumhog-Axhhdm-Ufextb Hx Patient Social History Tobacco Use?: No Use of E-Cig and/or Vaping dev: No Substance use?: No Alcohol Use?: No Pt feels they are or have been: No Immunizations Up To Date First/Initial COVID19 Vaccinat: 2020 Second COVID19 Vaccination Nickolas: 2020 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 Seasonal Allergies Seasonal Allergies: No Past Medical History Surgeries: Yes (bx, breast bx, carpal tunnel release, L wrist x 2, eye surgery) Breast, Orthopedic Respiratory: No Cardiac: Yes (undiagnosed cardiac murmur) Hypertension Neurological: Yes Headaches /Migraines Genitourinary: Yes UTI-Chronic Gastrointestinal: Yes (Diaphragmatic hernia) Gastroesophageal Reflux, Esophagitis, Irritable Bowel Musculoskeletal: Yes (bulging disc, chronic left ankle pain, cervical disc "p inched") Chronic Back Pain Endocrine: Yes Diabetes, Non-Insulin dep HEENT: Yes (eye surgery) Cancer: No Psychosocial: Yes Depression Integumentary: No Blood Disorders: No Physical Exam Vital Signs Vital Signs - First Documented 12/22/21 14:16 Temp 36.1 Pulse 85 Resp 16 B/P (MAP) 149/89 (109) Pulse Ox 98 O2 Delivery Room Air Capillary Refill : Less Than 3 Seconds Height/Weight/BMI Height: 5'5.00" Weight: 164lbs. oz. 74.355814zs; 43.00 BMI Method:Stated General Appearance: WD/WN, no apparent distress HEENT: normal ENT inspection Neck: non-tender, full range of motion, supple Respiratory: normal breath sounds Gastrointestinal: soft, other (Obesity compromising exam., Some tenderness left lower quadrant.) Neurologic/Psychiatric: alert, oriented x 3 Skin: normal color Focused Exam Sepsis Stage: Ruled Out Progress/Results/Core Measures Results/Orders Lab Results Laboratory Tests Test 12/22/21 14:39 12/22/21 14:48 Range/Units White Blood Count 7.6 4.3-11.0 10^3/uL Red Blood Count 4.83 3.80-5.11 10^6/uL Hemoglobin 13.5 11.5-16.0 g/dL Hematocrit 42 35-52 % Mean Corpuscular Volume 88 80-99 fL Mean Corpuscular Hemoglobin 28 25-34 pg Mean Corpuscular Hemoglobin Concent 32 32-36 g/dL Red Cell Distribution Width 15.5 H 10.0-14.5 % Platelet Count 255 130-400 10^3/uL Mean Platelet Volume 9.4 9.0-12.2 fL Immature Granulocyte % (Auto) 0 % Neutrophils (%) (Auto) 70 42-75 % Lymphocytes (%) (Auto) 22 12-44 % Monocytes (%) (Auto) 6 0-12 % Eosinophils (%) (Auto) 2 0-10 % Basophils (%) (Auto) 1 0-10 % Neutrophils # (Auto) 5.3 1.8-7.8 10^3/uL Lymphocytes # (Auto) 1.6 1.0-4.0 10^3/uL Monocytes # (Auto) 0.4 0.0-1.0 10^3/uL Eosinophils # (Auto) 0.2 0.0-0.3 10^3/uL Basophils # (Auto) 0.0 0.0-0.1 10^3/uL Immature Granulocyte # (Auto) 0.0 0.0-0.1 10^3/uL Sodium Level 139 135-145 MMOL/L Potassium Level 3.6 3.6-5.0 MMOL/L Chloride Level 102 98-107 MMOL/L Carbon Dioxide Level 23 21-32 MMOL/L Anion Gap 14 5-14 MMOL/L Blood Urea Nitrogen 15 7-18 MG/DL Creatinine 0.65 0.60-1.30 MG/DL Estimat Glomerular Filtration Rate 102 BUN/Creatinine Ratio 23 Glucose Level 154 H 70-105 MG/DL Calcium Level 9.7 8.5-10.1 MG/DL Corrected Calcium 9.5 8.5-10.1 MG/DL Total Bilirubin 0.3 0.1-1.0 MG/DL Aspartate Amino Transf (AST/SGOT) 12 5-34 U/L Alanine Aminotransferase (ALT/SGPT) 21 0-55 U/L Alkaline Phosphatase 67 40-136 U/L C-Reactive Protein 1.07 H <0.50 MG/DL Total Protein 7.2 6.4-8.2 GM/DL Albumin 4.3 3.2-4.5 GM/DL Urine Color YELLOW Urine Clarity CLEAR Urine pH 6.0 5-9 Urine Specific [place] 1.010 L 1.016-1.022 Urine Protein NEGATIVE NEGATIVE Urine Glucose (UA) 3+ H NEGATIVE Urine Ketones NEGATIVE NEGATIVE Urine Nitrite NEGATIVE NEGATIVE Urine Bilirubin NEGATIVE NEGATIVE Urine Urobilinogen 0.2 < = 1.0 MG/DL Urine Leukocyte Esterase NEGATIVE NEGATIVE Urine RBC (Auto) NEGATIVE NEGATIVE Urine RBC NONE /HPF Urine WBC 0-2 /HPF Urine Squamous Epithelial Cells 0-2 /HPF Urine Crystals NONE /LPF Urine Bacteria NEGATIVE /HPF Urine Casts NONE /LPF Urine Mucus NEGATIVE /LPF Urine Culture Indicated NO My Orders Orders - MICHAEL THAKUR DO Cbc With Automated Diff (12/22/21 14:29) Comprehensive Metabolic Panel (12/22/21 14:29) Urinalysis (12/22/21 14:29) Crp Fs (12/22/21 14:29) Ct Abdomen/Pelvis W (12/22/21 15:24) Iohexol Injection (Omnipaque 350 Mg/Ml 1 (12/22/21 15:45) Received Contrast (Hold Metformin- Contr (12/22/21 15:45) Ns (Ivpb) (Sodium Chloride 0.9% Ivpb Bag (12/22/21 15:45) Medications Given in ED Current Medications Medications Dose Ordered Sig/Marlin Route Start Time Stop Time Status Last Admin Dose Admin Iohexol 150 ml ONCE ONCE IV 12/22/21 15:45 12/22/21 15:46 DC 12/22/21 15:45 100 ML Sodium Chloride 100 ml ONCE ONCE IV 12/22/21 15:45 12/22/21 15:46 DC 12/22/21 15:46 100 ML Vital Signs/I&O 12/22/21 14:16 Temp 36.1 Pulse 85 Resp 16 B/P (MAP) 149/89 (109) Pulse Ox 98 O2 Delivery Room Air Blood Pressure Mean: 109 Departure Communication (Admissions) CT abdomen pelvis: No acute findings per radiology report. Chronic intermittent abdominal pain with limited exam. Labs reviewed nondiagnostic. CT reassuring. Recommendations are supportive care with PCP and general surgeon follow-up for further management. Impression Primary Impression: Chronic abdominal pain Additional Impression: Pinworms Disposition: HOME, SELF-CARE Condition: Stable Departure-Patient Inst. Decision time for Depature: 16:24 Referrals: MARITZA HUFF MD (PCP/Family) Primary Care Physician Patient Instructions: Pinworm Infection (DC), Flank Pain Add. Discharge Instructions: Please repeat pinworm treatment and continue home medications. Follow-up with your PCP in 3 to 5 days for reevaluation of abdominal pain and pinworm infection. Return to the ED if new or worsening symptoms. All discharge instructions reviewed with patient and/or family. Voiced understanding. MICHAEL THAKUR DO Dec 22, 2021 16:24
[2021-12-22 16:28] VITALS: BP 132/72
== END 2021-12-22 16:28 | disposition home or self-care (01) ==
LOC: EDUNIT# 14:05 → ER FS 14:07
DX: G89.29 Other chronic pain (principal); R10.32 Left lower quadrant pain; B80 Enterobiasis; I10 Essential (primary) hypertension; K21.9 Gastro-esophageal reflux disease without esophagitis; F32.9 Major depressive disorder, single episode, unspecified; E11.9 Type 2 diabetes mellitus without complications; Z91.040 Latex allergy status; Z79.899 Other long term (current) drug therapy
CPT/HCPCS: 36415; 74177; 80053; 81000; 85025; 86141

== ENCOUNTER → 2022-01-01 | Outpatient (CLI) | payer MEDICARE, MEDICAID | LOC: LAB FS 12-29 11:56 | PROVIDERS: ATTEND Family Medicine | DX: B80 Enterobiasis (principal) | CPT/HCPCS: 87172 ==

== ENCOUNTER → 2022-01-28 | Outpatient (CLI) | payer MEDICARE, MEDICAID ==
[2022-01-28 14:33] LABS: HEMATOCRIT 42 % (35-52); HEMOGLOBIN 13.6 g/dL (11.5-16.0); MEAN CORPUSCULAR HEMOGLOBIN 28 pg (25-34); MEAN CORPUSCULAR HGB CONC 33 g/dL (32-36); MEAN CORPUSCULAR VOLUME 87 fL (80-99); MEAN PLATELET VOLUME 9.4 fL (9.0-12.2); PLATELET COUNT 285 10^3/uL (130-400); WHITE BLOOD COUNT 7.1 10^3/uL (4.3-11.0)
[2022-01-28 15:23] LABS: CALCIUM 9.8 MG/DL (8.5-10.1); CREATININE SERUM 0.65 MG/DL (0.60-1.30); POTASSIUM 3.8 MMOL/L (3.6-5.0)
== END ==
LOC: LAB FS 14:03
PROVIDERS: ATTEND Surgery
DX: Z01.812 Encounter for preprocedural laboratory examination (principal); I10 Essential (primary) hypertension; E11.9 Type 2 diabetes mellitus without complications
CPT/HCPCS: 36415; 80048; 85027

== ENCOUNTER → 2022-11-20 | Outpatient (CLI) | payer MEDICARE, MEDICAID ==
[~2022-11-20] MED LIST changes: -FEXO-46; +NF-ALLE180
[2022-11-20 08:41] LABS: HEMATOCRIT 46 % (35-52); HEMOGLOBIN 15.1 g/dL (11.5-16.0); MEAN CORPUSCULAR HEMOGLOBIN 29 pg (25-34); MEAN CORPUSCULAR HGB CONC 33 g/dL (32-36); MEAN CORPUSCULAR VOLUME 87 fL (80-99); MEAN PLATELET VOLUME 9.4 fL (9.0-12.2); PLATELET COUNT 295 10^3/uL (130-400)
[2022-11-20 08:44] LABS: BILIRUBIN,URINE NEGATIVE (NEGATIVE); CLARITY,URINE CLEAR; GLUCOSE, URINE (UA) 3+ (NEGATIVE); KETONES,URINE 1+ (NEGATIVE); LEUKOCYTE ESTERASE ,URINE NEGATIVE (NEGATIVE); NITRITE,URINE NEGATIVE (NEGATIVE); PH,URINE 5.5 (5-9); PROTEIN,URINE NEGATIVE (NEGATIVE)
[2022-11-20 08:47] LABS: COLOR,URINE DARK YELLOW
[2022-11-20 08:50] LABS: BACTERIA,URINE MODERATE /HPF; SQUAMOUS EPITHELIAL CELL,UR >50 /HPF
[2022-11-20 08:55] LABS: ALBUMIN 4.5 GM/DL (3.2-4.5); BILIRUBIN,TOTAL 0.4 MG/DL (0.1-1.0); CALCIUM 9.8 MG/DL (8.5-10.1); CREATININE SERUM 0.64 MG/DL (0.60-1.30); POTASSIUM 4.2 MMOL/L (3.6-5.0); TOTAL PROTEIN 7.9 GM/DL (6.4-8.2)
== END ==
LOC: LAB 08:19
PROVIDERS: ATTEND Family Medicine
DX: E11.9 Type 2 diabetes mellitus without complications (principal); I10 Essential (primary) hypertension
CPT/HCPCS: 36415; 80053; 80061; 81000; 83036; 84443; 85027

== ENCOUNTER → 2023-04-11 | Outpatient (CLI) | payer MEDICARE, MEDICAID ==
[~2023-04-11] MED LIST changes: +CEPH500C PO
[2023-04-11 09:23] LABS: ALKALINE PHOSPHATASE 89 U/L (40-136); BILIRUBIN,TOTAL 0.4 MG/DL (0.1-1.0); BUN/CREATININE RATIO 27; CALCIUM 9.8 MG/DL (8.5-10.1); CARBON DIOXIDE 16 MMOL/L (21-32); CHLORIDE 101 MMOL/L (98-107); CREATININE SERUM 0.77 MG/DL (0.60-1.30); GFR ESTIMATED 89; GLUCOSE 122 MG/DL (70-105); SODIUM 136 MMOL/L (135-145)
[2023-04-11 09:24] LABS: ALANINE AMINOTRANSFERASE 45 U/L (0-55); ALBUMIN 4.6 GM/DL (3.2-4.5); TOTAL PROTEIN 8.1 GM/DL (6.4-8.2)
== END ==
LOC: LAB FS 07:37
PROVIDERS: ATTEND Family Medicine
DX: E11.65 Type 2 diabetes mellitus with hyperglycemia (principal)
CPT/HCPCS: 36415; 80053; 83036

== ENCOUNTER 2023-04-12 03:20 | Emergency (ER) | payer MEDICARE, MEDICAID ==
[~2023-04-12 03:20] MED LIST changes: -CEPH500C PO
[2023-04-12 03:36] LABS: CLARITY,URINE CLOUDY; COLOR,URINE YELLOW; GLUCOSE, URINE (UA) 2+ (NEGATIVE); KETONES,URINE 3+ (NEGATIVE); LEUKOCYTE ESTERASE ,URINE TRACE (NEGATIVE); NITRITE,URINE NEGATIVE (NEGATIVE); PROTEIN,URINE 1+ (NEGATIVE)
[2023-04-12] MEDS ORDERED: NS IV 1000 ML 1,000 ML IV STA (03:37)
[2023-04-12] MEDS ORDERED: KETOROLAC 15 MG/ML VIAL IVP STA (03:37)
--- NOTE | 2023-04-12 03:46 | ED GI ---
General Chief Complaint: Abdominal/GI Problems Stated Complaint: ABD PAIN| Source of Information: Patient History of Present Illness Date Seen by Provider: April 12, 2023 Time Seen by Provider: 03:22 Initial Comments 57-year-old female presenting with complaints of chronic abdominal pain that has been worse in the last 2 or 3 days. She also feels that she is constipated. She reports having irritable bowel syndrome and frequent bouts of abdominal pain. She states that her pain is "just really bad". She is vague about her symptoms and what might be different to make her come in the middle of the night to the emergency department. She states that she did talk to her primary care provider, Dr. HUFF, on Tuesday. They had her take extra of her Linzess however she felt like it had not helped. She did not physically go see her doctor who is in [facility]. She came to the [place] emergency department [facility] where we did not have access to her chronic medical records from [facility] [place]. She states that she had her gallbladder removed last January. She denies any other abdominal surgeries. She denies having nausea, vomiting, pain with urination, fever, chills. When asked what she was allergic to she said "there are a lot of medicines" and she did not have a list of them or able to say what specifically she was allergic to for a complete list. She did not know any specific medicine that might work for her pain in the past. When asked about what the type of pain is she replied "it just hurts". I asked if she could take Toradol or Ketorolac for pain or Bentyl or Dicyclomine and she thought that they would be medicine she could take. However on her allergy list in the [facility] EMR allergies to Ibuprofen and Dicyclomine were listed. However they were listed as adverse reactions, not allergies, and there were no specific reactions listed with the medicines. Timing/Duration: 2-3 Days Severity/Quality: Severe, Aching, Cramping Location: Generalized Abdomen (but seems worse to the left lower abdomen) Radiation: No Radiation Activities at Onset: None Modifying Factors: Worsens With Movement, Worsens With Palpation Associated Symptoms: Back Pain (chronic); No Chest Pain, No Diaphoresis, No Fever/Chills, No Fatigue, No Headache, No Heartburn, No Nausea/Vomiting, No Rash, No Shortness of Air, No Swelling/Mass in Abdomen, No Syncope, No Weakness Allergies and Home Medications Allergies Coded Allergies: adhesive tape (Unverified Adverse Reaction, Unknown, 03/31/19) dicyclomine (Unverified Adverse Reaction, Unknown, 03/31/19) hydrocodone (Unverified Adverse Reaction, Unknown, 03/31/19) ibuprofen (Unverified Adverse Reaction, Unknown, 03/31/19) latex (Unverified Adverse Reaction, Unknown, 03/31/19) menthol (Unverified Adverse Reaction, Unknown, 03/31/19) meperidine (Unverified Adverse Reaction, Unknown, 03/31/19) nortriptyline (Unverified Adverse Reaction, Unknown, 03/31/19) prednisone (Unverified Adverse Reaction, Unknown, 03/31/19) tramadol (Unverified Adverse Reaction, Unknown, 03/31/19) Patient Home Medication List Home Medication List Reviewed: Yes Cephalexin (Cephalexin) 500 Mg Capsule, 500 MG PO TID Prescribed by: ALEC TAI on 04/12/23 0556 Escitalopram Oxalate (Escitalopram Oxalate) 5 Mg Tablet, (Reported) Entered as Reported by: ELLIE GAVIRIA on 03/31/191656 Fexofenadine HCl (Fexofenadine HCl) 180 Mg Tablet, (Reported) Entered as Reported by: ELLIE GAVIRIA on 03/31/191656 Gabapentin (Gabapentin) 100 Mg Capsule, (Reported) Entered as Reported by: ELLIE GAVIRIA on 03/31/191656 Losartan Potassium (Losartan Potassium) 50 Mg Tablet, (Reported) Entered as Reported by: ELLIE GAVIRIA on 03/31/191656 Lubiprostone (Amitiza) 8 Mcg Capsule, (Reported) Entered as Reported by: ELLIE GAVIRIA on 03/31/191656 Omeprazole (Omeprazole) 20 Mg Capsule., (Reported) Entered as Reported by: ELLIE GAVIRIA on 03/31/191656 Sitagliptin Phosphate (Januvia) 100 Mg Tablet, (Reported) Entered as Reported by: ELLIE GAVIRIA on 03/31/191656 Review of Systems Review of Systems Constitutional: No chills, No fever EENTM: No Symptoms Reported Respiratory: No Symptoms Reported Cardiovascular: No Symptoms Reported Gastrointestinal: See HPI Genitourinary: No Symptoms Reported Musculoskeletal: no symptoms reported Skin: no symptoms reported Psychiatric/Neurological: No Symptoms Reported Past Wmeppks-Rbkruj-Oljtbr Hx Immunizations Up To Date First/Initial COVID19 Vaccinat: 2020 Second COVID19 Vaccination Nickolas: 2020 Seasonal Allergies Seasonal Allergies: No Past Medical History Surgery/Hospitalization HX: Cholecystectomy, Irritable Bowel Syndrome Surgeries: Yes (bx, breast bx, carpal tunnel release, L wrist x 2, eye surgery) Breast, Orthopedic Respiratory: No Cardiac: Yes (undiagnosed cardiac murmur) Hypertension Neurological: Yes Headaches /Migraines Genitourinary: Yes UTI-Chronic Gastrointestinal: Yes (Diaphragmatic hernia) Gastroesophageal Reflux, Esophagitis, Irritable Bowel Musculoskeletal: Yes (bulging disc, chronic left ankle pain, cervical disc "pinched") Chronic Back Pain Endocrine: Yes Diabetes, Non-Insulin dep HEENT: Yes (eye surgery) Cancer: No Psychosocial: Yes Depression Integumentary: No Blood Disorders: No Physical Exam Vital Signs Vital Signs - First Documented 04/12/23 03:23 Temp 36.1 Pulse 93 Resp 18 B/P (MAP) 162/83 (109) Pulse Ox 96 O2 Delivery Room Air Capillary Refill : Height/Weight/BMI Height: 5'5.00" Weight: 164lbs. oz. 74.640527la; 43.00 BMI Method:Stated General Appearance: no apparent distress, obese HEENT: PERRL/EOMI Respiratory: chest non-tender, lungs clear, normal breath sounds, no respiratory distress, no accessory muscle use Cardiovascular: normal peripheral pulses, regular rate, rhythm Gastrointestinal: normal bowel sounds, soft, no pulsatile mass; No distended, No guarding, No rebound; tenderness (LLQ and suprapubic pain with palpation) Rectal: deferred Extremities: normal range of motion, non-tender, normal capillary refill Neurologic/Psychiatric: alert, oriented x 3 Skin: normal color, warm/dry Images 1 - complaint of diffuse abdominal pain but with palpation seemed to be worse in LLQ and suprapubic area. no rebound or guarding Progress/Results/Core Measures Results/Orders Lab Results Laboratory Tests Test 04/12/23 03:26 04/12/23 03:40 Range/Units Urine Color YELLOW Urine Clarity CLOUDY Urine pH 6.0 5-9 Urine Specific [place] >=1.030 1.016-1.022 Urine Protein 1+ H NEGATIVE Urine Glucose (UA) 2+ H NEGATIVE Urine Ketones 3+ H NEGATIVE Urine Nitrite NEGATIVE NEGATIVE Urine Bilirubin 1+ H NEGATIVE Urine Urobilinogen 0.2 < = 1.0 MG/DL Urine Leukocyte Esterase TRACE H NEGATIVE Urine RBC (Auto) 1+ H NEGATIVE Urine RBC NONE /HPF Urine WBC 10-25 H /HPF Urine Squamous Epithelial Cells 2-5 /HPF Urine Renal Epithelial Cells 0-2 /HPF Urine Crystals NONE /LPF Urine Bacteria FEW H /HPF Urine Casts PRESENT /LPF Urine Hyaline Casts 0-2 H /LPF Urine Mucus MODERATE H /LPF Urine Culture Indicated YES Urine Opiates Screen NEGATIVE NEGATIVE Urine Oxycodone Screen NEGATIVE NEGATIVE Urine Methadone Screen NEGATIVE NEGATIVE Urine Propoxyphene Screen NEGATIVE NEGATIVE Urine Barbiturates Screen NEGATIVE NEGATIVE Ur Tricyclic Antidepressants Screen NEGATIVE NEGATIVE Urine Phencyclidine Screen NEGATIVE NEGATIVE Urine Amphetamines Screen NEGATIVE NEGATIVE Urine Methamphetamines Screen NEGATIVE NEGATIVE Urine Benzodiazepines Screen NEGATIVE NEGATIVE Urine Cocaine Screen NEGATIVE NEGATIVE Urine Cannabinoids Screen NEGATIVE NEGATIVE White Blood Count 7.3 4.3-11.0 10^3/uL Red Blood Count 5.62 H 3.80-5.11 10^6/uL Hemoglobin 16.0 11.5-16.0 g/dL Hematocrit 49 35-52 % Mean Corpuscular Volume 86 80-99 fL Mean Corpuscular Hemoglobin 29 25-34 pg Mean Corpuscular Hemoglobin Concent 33 32-36 g/dL Red Cell Distribution Width 14.6 H 10.0-14.5 % Platelet Count 295 130-400 10^3/uL Mean Platelet Volume 9.5 9.0-12.2 fL Immature Granulocyte % (Auto) 0 % Neutrophils (%) (Auto) 72 42-75 % Lymphocytes (%) (Auto) 18 12-44 % Monocytes (%) (Auto) 7 0-12 % Eosinophils (%) (Auto) 2 0-10 % Basophils (%) (Auto) 1 0-10 % Neutrophils # (Auto) 5.3 1.8-7.8 10^3/uL Lymphocytes # (Auto) 1.3 1.0-4.0 10^3/uL Monocytes # (Auto) 0.5 0.0-1.0 10^3/uL Eosinophils # (Auto) 0.1 0.0-0.3 10^3/uL Basophils # (Auto) 0.1 0.0-0.1 10^3/uL Immature Granulocyte # (Auto) 0.0 0.0-0.1 10^3/uL Sodium Level 135 135-145 MMOL/L Potassium Level 3.9 3.6-5.0 MMOL/L Chloride Level 100 98-107 MMOL/L Carbon Dioxide Level 16 L 21-32 MMOL/L Anion Gap 19 H 5-14 MMOL/L Blood Urea Nitrogen 16 7-18 MG/DL Creatinine 0.68 0.60-1.30 MG/DL Estimat Glomerular Filtration Rate 100 BUN/Creatinine Ratio 24 Glucose Level 125 H 70-105 MG/DL Calcium Level 10.6 H 8.5-10.1 MG/DL Corrected Calcium 8.5-10.1 MG/DL Total Bilirubin 0.5 0.1-1.0 MG/DL Aspartate Amino Transf (AST/SGOT) 31 5-34 U/L Alanine Aminotransferase (ALT/SGPT) 49 0-55 U/L Alkaline Phosphatase 93 40-136 U/L Total Protein 8.1 6.4-8.2 GM/DL Albumin 4.6 H 3.2-4.5 GM/DL Lipase 42 8-78 U/L My Orders Orders - ALEC TAI MD Ua Culture If Indicated (04/12/23 03:24) Drug Screen Stat (Urine) (04/12/23 03:24) Comprehensive Metabolic Panel (04/12/23 03:37) Lipase (04/12/23 03:37) Ed Iv/Invasive Line Start (04/12/23 03:37) Cbc With Automated Diff (04/12/23 03:37) Ct Abdomen/Pelvis Wo (04/12/23 03:37) Ns Iv 1000 Ml (Sodium Chloride 0.9%) (04/12/23 03:37) Ketorolac Injection (Toradol Injection) (04/12/23 03:37) Urine Culture (04/12/23 03:26) Ceftriaxone Pre-Mix (Rocephin Pre-Mix) (04/12/23 04:10) Vital Signs/I&O 04/12/23 04/12/23 03:23 05:57 Temp 36.1 Pulse 93 85 Resp 18 16 B/P (MAP) 162/83 (109) 124/85 Pulse Ox 96 98 O2 Delivery Room Air Room Air Progress Progress Note #1: Progress Note Potential diagnosis of diverticulitis, irritable bowel, constipation, colitis, UTI, kidney stone, bowel obstruction. Obtain peripheral IV access and send labs for complete blood count, comprehe nsive metabolic profile, lipase, urinalysis, urine drug screen. CT scan of the abdomen and pelvis with IV contrast to look for signs of a kidney stone, diverticulitis, colitis, constipation, bowel obstruction. Administer normal saline 1 L IV fluid bolus for hydration. Although she stated that she could try taking the Bentyl or dicyclomine since it is on her adverse reaction list we will hold off on that for now and try starting with a dose of Toradol 15 mg IV for pain. Progress Note #2: Time: 04:00 Progress Note Urine drug screen is negative. Urinalysis shows dehydration with elevated concentration based off of the specific gravity greater than 1.030. She had 1+ protein, 2+ glucose, 3+ ketones, leukocyte esterase and 10-25 white blood cells with bacteria. A culture was reflexed. Based on this it looks like some dehydration and urinary tract infection could be contributing to her pain and symptoms. We will treat with ceftriaxone or Rocephin 1 g IV while waiting on additional testing. 0408 on my personal interpretation and review of her CT scan of the abdomen pelvis with out IV contrast patient had increased stool throughout her colon. There was a no air-fluid levels or signs of obstruction or blockage. She did not have a fecal impaction. I did not appreciate any kidney stones or bladder stones. I did not appreciate any acute fluid collection. Patient had no prior urine cultures within the EMR for [facility] so we will proceed with the Rocephin 1 g IV for UTI. Progress Note #3: Time: 04:49 Progress Note Her comprehensive metabolic profile did not show any acute significant abnormality to account for her abdominal pain complaints. Her creatinine was normal at 0.68. Her glucose was slightly elevated at 125. She had a negative lipase at 42 to help count against pancreatitis. Waiting on CT scan report from radiologist with [facility] [employer] service. Progress Note #4: Time: 05:45 Progress Note Radiologist report on the CT scan of the abdomen and pelvis without IV contrast came across and had an impression of fatty liver and possible diarrheal illness without colonic wall thickening. This would be consistent with her taking extra of her Linzess for constipation. Updated patient on findings and results. Encouraged to continue drinking plenty of fluids and to give a little more time for the medicine to work for the constipation. Check back with her primary provider for continued concerns and she may need to have a referral to a GI specialist if not improving. Prescription for cephalexin 500 mg p.o. 3 times daily x5 days was sent to the pharmacy for her UTI. She had tolerated the Rocephin here in the emergency department well without any complications or problems and she is not aware of any allergies to cephalexin. Diagnostic Imaging Diagonstic Imaging: CT Plain Films/CT/US/NM/MRI: abdomen, pelvis Comments CT scan of the abdomen pelvis without IV contrast Impression 1. Fatty liver. 2. Possible diarrheal illness without colonic wall thickening. Read by radiologist Dr. Tevin Guevara MD at 0410 and faxed at [phone] Reviewed: Reviewed [place] Study, Reviewed by Me (I reviewed the [facility] radiologist report at 05 45) Departure Impression Primary Impression: Diffuse abdominal pain Additional Impression: Acute cystitis without hematuria Disposition: HOME, SELF-CARE Condition: Stable Departure-Patient Inst. Decision time for Depature: 05:55 Referrals: MARITZA HUFF MD (PCP/Family) Primary Care Physician Patient Instructions: Abdominal Pain, Adult ED, IRRITABLE BOWEL SYNDROME, Urinary Tract Infection, Adult ED Add. Discharge Instructions: Make sure you are drinking plenty of fluids and stay well-hydrated. Take the full course of antibiotics to treat for the UTI. The CT scan was not showing any obstruction or blockage and it looks like your medications were working to soften and liquefied the stool. Hopefully today that he would have results from taking the medicine to counteract your constipation. If you are continuing to have problems in complications consider asking Dr. HUFF about a referral to a GI specialist to get additional ideas or ways to try and treat your chronic abdominal pain and irritable bowel. All discharge instructions reviewed with patient and/or family. Voiced understan eladia. Scripts Cephalexin (Cephalexin) 500 Mg Capsule 500 MG PO TID for UTI for 5 Days, #15 CAP 0 Refills Prov: ALEC TAI MD 04/12/23 ALEC TAI MD April 12, 2023 03:46
[2023-04-12 03:54] LABS: AMPHETAMINE SCREEN, URINE NEGATIVE (NEGATIVE); BARBITURATE SCREEN URINE NEGATIVE (NEGATIVE); BENZODIAZEPINES SCREEN URINE NEGATIVE (NEGATIVE); CANNABINOID SCREEN, URINE NEGATIVE (NEGATIVE); COCAINE SCREEN URINE NEGATIVE (NEGATIVE); METHADONE STAT NEGATIVE (NEGATIVE); OPIATE SCREEN URINE NEGATIVE (NEGATIVE); OXYCODONE STAT NEGATIVE (NEGATIVE); PROPOXYPHENE STAT NEGATIVE (NEGATIVE); TRICYCLIC ANTIDEPRESSANTS SCRE NEGATIVE (NEGATIVE)
[2023-04-12 03:55] LABS: BACTERIA,URINE FEW /HPF; HYALINE CASTS, URINE 0-2 /LPF; RENAL EPITHELIAL CELLS,URINE 0-2 /HPF
[2023-04-12 03:56] LABS: BILIRUBIN,URINE 1+ (NEGATIVE)
[2023-04-12 04:06] LABS: BASOPHILS # (AUTO) 0.1 10^3/uL (0.0-0.1); BASOPHILS % (AUTO) 1 % (0-10); EOSINOPHILS # (AUTO) 0.1 10^3/uL (0.0-0.3); EOSINOPHILS % (AUTO) 2 % (0-10); HEMATOCRIT 49 % (35-52); LYMPHOCYTES # (AUTO) 1.3 10^3/uL (1.0-4.0); LYMPHOCYTES % (AUTO) 18 % (12-44); MEAN CORPUSCULAR HEMOGLOBIN 29 pg (25-34); MEAN CORPUSCULAR HGB CONC 33 g/dL (32-36); MEAN CORPUSCULAR VOLUME 86 fL (80-99); MEAN PLATELET VOLUME 9.5 fL (9.0-12.2); MONOCYTES # (AUTO) 0.5 10^3/uL (0.0-1.0); MONOCYTES % (AUTO) 7 % (0-12); NEUTROPHILS # (AUTO) 5.3 10^3/uL (1.8-7.8); NEUTROPHILS % (AUTO) 72 % (42-75); PLATELET COUNT 295 10^3/uL (130-400); WHITE BLOOD COUNT 7.3 10^3/uL (4.3-11.0)
[2023-04-12] MEDS ORDERED: cefTRIAXone PRE-MIX 50 ML IV STA (04:10)
[2023-04-12 04:27] LABS: BUN/CREATININE RATIO 24; CARBON DIOXIDE 16 MMOL/L (21-32); CHLORIDE 100 MMOL/L (98-107); CREATININE SERUM 0.68 MG/DL (0.60-1.30); GFR ESTIMATED 100; POTASSIUM 3.9 MMOL/L (3.6-5.0); SODIUM 135 MMOL/L (135-145)
[2023-04-12 04:28] LABS: ALANINE AMINOTRANSFERASE 49 U/L (0-55); ALBUMIN 4.6 GM/DL (3.2-4.5); ALKALINE PHOSPHATASE 93 U/L (40-136); BILIRUBIN,TOTAL 0.5 MG/DL (0.1-1.0); CALCIUM 10.6 MG/DL (8.5-10.1); GLUCOSE 125 MG/DL (70-105); LIPASE 42 U/L (8-78); TOTAL PROTEIN 8.1 GM/DL (6.4-8.2)
[2023-04-12] MEDS ORDERED: CEPH500C PO (05:56)
[2023-04-12 05:57] VITALS: BP 124/85
--- NOTE | 2023-04-12 08:30 | Diagnostic Imaging Report ---
EXAMINATION: CT abdomen and pelvis without contrast. TECHNIQUE: Multiple contiguous axial images were obtained through the abdomen and pelvis without the use of intravenous contrast. All CT scans use one or more of the following dose optimizing techniques: automated exposure control, MA and/or KvP adjustment based on patient size and exam type or iterative reconstruction. HISTORY: Abdominal pain and constipation COMPARISON: 12/22/2021 FINDINGS: Limited views of the lower thorax show a calcified granuloma in the lingula. Liver is steatotic. No suspicious liver lesion. There is no biliary ductal dilation. Gallbladder is absent. Pancreas is normal. Spleen is normal. Adrenal glands are normal. The kidneys are normal. There is no hydronephrosis. Urinary bladder is normal. Bowel is normal in caliber without obstruction or inflammation. The appendix is normal. There is a fat-containing umbilical hernia. No free fluid or air. No abdominal or pelvic lymphadenopathy. Aorta is normal in caliber without aneurysm. There are no suspicious osseus lesions. IMPRESSION: 1. Steatotic liver, otherwise no acute abnormality. Dictated by: Dictated on workstation # [id number]
== END 2023-04-12 06:00 | disposition home or self-care (01) ==
LOC: EDUNIT# 03:20 → ER FS 03:22
DX: N30.00 Acute cystitis without hematuria (principal); Z90.49 Acquired absence of other specified parts of digestive tract; Z91.040 Latex allergy status; Z88.6 Allergy status to analgesic agent
CPT/HCPCS: 36415; 74176; 80053; 80306; 81000; 83690; 85025; 87088

== ENCOUNTER → 2023-06-06 | Outpatient (CLI) | payer MEDICARE, MEDICAID ==
[~2023-06-06] MED LIST changes: +CEPH500C PO; +DIATRIZOATE MEGLUM/SODIUM 37% 120 ML (GASTROGRAFIN) PO ONE
--- NOTE | 2023-06-06 16:03 | Diagnostic Imaging Report ---
PROCEDURE: CT abdomen and pelvis without contrast. TECHNIQUE: Multiple contiguous axial images were obtained through the abdomen and pelvis without the use of intravenous contrast. Auto Exposure Controls were utilized during the CT exam to meet ALARA standards for radiation dose reduction. INDICATION: Abdominal pain. Status post recent incomplete colonoscopy. COMPARISON: 04/12/2023. FINDINGS: Included portions of the lung bases are clear. Mild hiatal hernia is noted. CT ABDOMEN: There is reflux of rectal contrast to the distal transverse colon. A large amount of air and stool is noted scattered throughout the colon. Small polyp or mass cannot be excluded. There is colonic diverticulosis but no CT evidence of acute diverticulitis. Small bowel loops are nondilated. Normal appendix is identified. Hypodensities of segment 4B of the liver are again noted and are stable; otherwise, the kidneys, adrenal glands, spleen, and pancreas have an unremarkable noncontrast CT appearance. Fat-containing umbilical hernia is identified. Ostium measures 2.2 cm. There is no loculated fluid collection, free fluid, or free air within the abdomen. No abnormal mesenteric or retroperitoneal adenopathy is identified. Osseous structures show no acute abnormalities. CT PELVIS: The urinary bladder is unopacified. No calculi are seen within the urinary bladder. There is no loculated fluid collection, free fluid, or free air within the pelvis. No abnormal lymph nodes are identified. Osseous structures show no acute abnormalities. IMPRESSION: 1. Moderate colonic air and stool. Please correlate for constipation. 2. Colonic diverticulosis but no CT evidence of acute diverticulitis. 3. Mild hiatal hernia. 4. Small fat-containing umbilical hernia. Dictated by: Dictated on workstation # [id number]
== END ==
LOC: RAD 13:31
PROVIDERS: ATTEND Surgery
DX: K57.30 Diverticulosis of large intestine without perforation or abscess without bleeding (principal); K44.9 Diaphragmatic hernia without obstruction or gangrene; K42.9 Umbilical hernia without obstruction or gangrene; Z98.890 Other specified postprocedural states
CPT/HCPCS: 74176

== ENCOUNTER → 2023-09-15 | Outpatient (CLI) | payer MEDICARE, MEDICAID ==
[~2023-09-15] MED LIST changes: -DIATRIZOATE MEGLUM/SODIUM 37% 120 ML (GASTROGRAFIN) PO ONE
[2023-09-15 08:53] LABS: BILIRUBIN,URINE NEGATIVE (NEGATIVE); CLARITY,URINE CLEAR; COLOR,URINE YELLOW; GLUCOSE, URINE (UA) 3+ (NEGATIVE); KETONES,URINE 2+ (NEGATIVE); LEUKOCYTE ESTERASE ,URINE 1+ (NEGATIVE); NITRITE,URINE NEGATIVE (NEGATIVE); PH,URINE 5.5 (5-9); PROTEIN,URINE NEGATIVE (NEGATIVE)
[2023-09-15 09:04] LABS: HEMATOCRIT 46 % (35-52); HEMOGLOBIN 15.1 g/dL (11.5-16.0); MEAN CORPUSCULAR HEMOGLOBIN 30 pg (25-34); MEAN CORPUSCULAR HGB CONC 33 g/dL (32-36); MEAN CORPUSCULAR VOLUME 91 fL (80-99); MEAN PLATELET VOLUME 9.8 fL (9.0-12.2); PLATELET COUNT 242 10^3/uL (130-400); WHITE BLOOD COUNT 5.8 10^3/uL (4.3-11.0)
[2023-09-15 09:12] LABS: RBC,URINE RARE /HPF
[2023-09-15 09:13] LABS: AMORPHOUS SEDIMENT,UR FEW AMOR URATES /LPF; BACTERIA,URINE FEW /HPF; WBC,URINE 25-50 /HPF
[2023-09-15 09:15] LABS: POTASSIUM 4.1 MMOL/L (3.6-5.0)
[2023-09-15 09:16] LABS: ALBUMIN 4.4 GM/DL (3.2-4.5); BILIRUBIN,TOTAL 0.4 MG/DL (0.1-1.0); CALCIUM 9.9 MG/DL (8.5-10.1); CREATININE SERUM 0.62 MG/DL (0.60-1.30); TOTAL PROTEIN 7.5 GM/DL (6.4-8.2)
[2023-09-15 21:18] LABS: HEPATITIS C ANTIBODY C Non-Reactive (Non-Reactive)
== END ==
LOC: LAB FS 08:13
PROVIDERS: ATTEND Family Medicine
DX: I10 Essential (primary) hypertension (principal)
CPT/HCPCS: 36415; 80053; 80061; 81000; 83036; 84443; 85027; 86803; 87088